=== PATIENT | female | born 1960 | race Two or more races ===

== ENCOUNTER → 2025-03-18 | Outpatient (CLI) | payer MEDICARE, MEDICAID, SELFPAY ==
--- NOTE | 2025-03-18 08:26 | XR_ITS ---
Examination: Knee bilateral, 6 views Technique: Knee AP, lateral, oblique Date and time of exam: March 18, 2025 0827 hours INDICATIONS: Bilateral knee pain beginning 6 months ago FINDINGS: Moderate osteopenia Mild osteoarthritis of right medial and patellofemoral joints Moderate osteoarthritis medial joint space left knee and moderate osteoarthritis left patellofemoral joint No fractures IMPRESSION: Mild right knee osteoarthritis Moderate left knee osteoarthritis
== END | disposition home or self-care (01) ==
PROVIDERS: PCP Nurse Practitioner Family; Referring Provider Nurse Practitioner Family; Visit Provider Nurse Practitioner Family
DX: M17.0 Bilateral primary osteoarthritis of knee (principal)
CPT/HCPCS: 73562

== ENCOUNTER → 2025-06-27 | Outpatient (CLI) | payer MEDICARE, MEDICAID, SELFPAY ==
--- NOTE | 2025-06-27 | XR_ITS ---
Examination: Shoulder,right, 3 views Technique: Shoulder AP internal rotation, AP external rotation, Y view shoulder, 3 views Exam date and time :June 27, 2025, 0730 hrs. Indications: Right shoulder pain beginning one week ago. Findings: Moderate narrowing glenohumeral joint No shoulder fracture or dislocation. No calcific tendinitis Impression: Moderate osteoarthritis glenohumeral joint.
[2025-06-27 08:32] LABS: Basophils # (Auto) 0.0 Thou/mm3 (0.0-0.2); Basophils % (Auto) 0 % (0-2.5); Eosinophils # (Auto) 0.2 Thou/mm3 (0.0-0.5); Eosinophils % (Auto) 2 % (0-10); Hematocrit 43.5 % (36.0-46.0); Hemoglobin 15.1 g/dL (12.0-16.0); Immature Granulocytes Auto 0.02 Thou/mm3 (0.00-0.00); Lymphocytes # (Auto) 3.4 Thou/mm3 (1.0-4.8); Lymphocytes % (Auto) 44 % (10-50); Mean Corpuscular HGB Conc 34.7 g/dl (31.0-37.0); Mean Corpuscular Hemoglobin 31.7 pg (25.0-35.0); Mean Corpuscular Volume 91 fL (80-100); Monocytes # (Auto) 0.5 Thou/mm3 (0.0-0.8); Monocytes % (Auto) 6 % (0-12); Neutrophils # (Auto) 3.7 Thou/mm3 (1.8-7.7); Neutrophils % (Auto) 47 % (37-80); Nucleated Red Blood Cell # 0.00 Thou/mm3 (0.00-0.00); Nucleated Red Blood Cell % 0 /100 WBC (0); Platelet Count 248 Thou/mm3 (140-440); RDW Standard Deviation 39.8 fL (36.4-46.3); Red Blood Count 4.77 Miln/mm3 (4.00-5.20); White Blood Count 7.7 Thou/mm3 (3.6-11.0)
[2025-06-27 08:42] LABS: Glucose Estimated Average 134 mg/dL (80-131); Hemoglobin A1C 6.3 % Hgb (4.8-6.0)
[2025-06-27 08:52] LABS: Folate 16.01 ng/mL (>5.38); Vitamin B12 495 pg/mL (211-911); Vitamin D 25 Hydroxy Total 24.7 ng/mL (7.3-40.2)
[2025-06-27 08:54] LABS: Alanine Aminotransferase 19 U/L (10-49); Albumin, Serum 4.6 gm/dL (3.4-4.8); Albumin/Globulin Ratio 1.6 (1.2-2.2); Alkaline Phosphatase 60 U/L (46-116); Anion Gap 11 (7-16); Aspartate Amino Transferase 16 U/L (0-34); BUN/Creatinine Ratio 14 Ratio (12-20); Bilirubin,Total 0.5 mg/dL (0.3-1.2); Blood Urea Nitrogen 18 mg/dL (9-23); Calcium 10.0 mg/dL (8.3-10.6); Calcium (Corrected) 10.0 mg/dL (8.5-10.1); Carbon Dioxide 28.4 mMol/L (20.0-31.0); Cardiac Risk Estimate 4.7 RATIO (3.7-5.6); Chloride 103 mMol/L (98-107); Cholesterol 210 mg/dL (132-200); Creatinine (Component) 1.3 mg/dL (0.6-1.3); Free T4 (Free Thyroxine) 1.32 ng/dL (0.89-1.76); Globulin 2.9 gm/dL (2.3-3.5); Glucose 130 mg/dL (74-106); HDL Cholesterol 45 mg/dL (40-60); LDL Cholesterol,Calculated 105 mg/dL (0-130); Osmolality,Calculated 287 (275-295); Potassium 4.6 mMol/L (3.4-5.1); Sodium 142 mMol/L (136-145); Thyroid Stimulating Hormone 3.62 uIU/mL (0.55-4.78); Total Protein 7.5 gm/dL (5.7-8.2); Triglycerides 299 mg/dL (30-150); eGFR 45 See Note
[2025-07-01 06:33] LABS: Direct LDL* 131 mg/dL (<100)
== END | disposition home or self-care (01) ==
LOC: CDIM 07:35 → COPL 07:39
PROVIDERS: PCP Family Medicine; Referring Provider Nurse Practitioner Family; Visit Provider Radiology Diagnostic Radiology
DX: M19.011 Primary osteoarthritis, right shoulder (principal); E78.5 Hyperlipidemia, unspecified; E11.21 Type 2 diabetes mellitus with diabetic nephropathy; R53.81 Other malaise; R53.83 Other fatigue
CPT/HCPCS: 36415; 73030; 80053; 80061; 82306; 82607; 82746; 83036; 83721; 84439; 84443; 85025

== ENCOUNTER 2025-09-04 12:00 | Outpatient (CLI) | payer MEDICARE, MEDICAID, SELFPAY ==
[2025-09-02 15:39] VITALS: BMI 34.3
[2025-09-03 12:11] LABS: Blood Urea Nitrogen 18 mg/dL (9-23); Creatinine (Component) 0.9 mg/dL (0.6-1.3); Estimated Creatinine Clearance 56.7 mL/min (>60); eGFR > 60 See Note
[2025-09-04] VITALS (14 sets, daily range): BP systolic 106–142; BP diastolic 52–87; PULSE 67–96; RESP 13–25; TEMP 36.6–37.1; O2SAT 97–100
[2025-09-04] MEDS: MIDAZOLAM INJ 1 MG/ML VIAL 2 ML IVP ×2 (12:50→13:15)
[2025-09-04] MEDS: SODIUM CHLORIDE 0.9% 500 ML 500 ML 250 ML IV (12:54)
--- NOTE | 2025-09-04 13:00 | XR_ITS ---
Examination: MRI orbits face neck without contrast MRI ORBIT face neck with intravenous contrast Date and time of exam: September 04, 2025, 1305 hours INDICATIONS: Mass in the neck 3 years Technique: Multiple MRI axial and sagittal sections orbits face neck pre and post 16 cc gadolinium Sagittal T2-weighted images, TR 3500, TE 118 T1 weighted transverse sections, TR 688 T8.5, T2-weighted sagittal sections T1 weighted sagittal sections TR 621, TE 30 T2 axial sections, TR 4, 190, TE 84. Findings: Maxillary antra are clear Symmetrical nasopharynx oropharynx At the marker site no enhancing masses depicted No pathologic carotid triangle or submental lymphadenopathy Symmetrical parotid glands with small subcentimeter circumscribed nodules The larynx appears normal Symmetrical submandibular glands IMPRESSION: Recommend ultrasound soft tissue follow-up of any palpable mass in the right neck
[2025-09-04] MEDS: fentaNYL CIT INJ 50 mCg/ML AMP 2ML IV (13:15)
--- NOTE | 2025-09-04 14:51 | PC.NURSE ---
1400 patient is awake, alert, breathing unlabored, s/p MRI neck under IV sedation, patient in labor custodian bay 3 for recovery 1446 patient is awake, alert, breathing unlabored, able to tolerate 1/2 sandwich and 7up with no nausea or vomiting, meets discharge criteria, discharge instructions given to patient and spouse via instrument rep[employer]r [employer], patient discharged home in wheelchair with all belongings.
== END 2025-09-04 14:46 | disposition home or self-care (01) ==
PROVIDERS: Radiology Diagnostic Radiology; PCP Nurse Practitioner Family; Referring Provider Nurse Practitioner Family; Visit Provider Nurse Practitioner Family
DX: K11.8 Other diseases of salivary glands (principal)
CPT/HCPCS: 36415; 70543; 82565; 84520; 99152; 99153; A9577; J2250; J3010; J7999

== ENCOUNTER → 2025-09-19 | Outpatient (CLI) | payer MEDICARE, MEDICAID, SELFPAY ==
--- NOTE | 2025-09-19 15:00 | XR_ITS ---
Examination: Screening digital mammography, bilateral Computer aided detection 3-D breast Tomosynthesis, bilateral Date and time of exam: September 19, 2025, 1459 hours, compared to mammograms dating to 06/28/2018 Indication: Screening Technique: Nonmagnified MLO, CC views of the breasts to been obtained, reconstructed from 3-D Tomosynthesis images. R2 computer aided detection program utilized for evaluation of suspicious masses and/or abnormal calcifications. 3-D Tomosynthesis images obtained. Findings: Scattered areas of fibroglandular density. Benign calcifications. No interval suspicious masses Impression: BI-RADS category II: Benign Findings. Recommend 1 year follow-up mammogram.
== END | disposition home or self-care (01) ==
LOC: CDIM 14:47
PROVIDERS: PCP Student in an Organized Health Care Education/Training Program; Referring Provider Student in an Organized Health Care Education/Training Program; Visit Provider Student in an Organized Health Care Education/Training Program
DX: Z12.31 Encounter for screening mammogram for malignant neoplasm of breast (principal); R92.323 Mammographic fibroglandular density, bilateral breasts; R92.1 Mammographic calcification found on diagnostic imaging of breast
CPT/HCPCS: 77063; 77067